=== PATIENT | male | born 1940 | race Caucasian/White ===

== ENCOUNTER 2017-01-02 12:18 | Inpatient (IN) | payer MEDICARE ==
[~2017-01-02] VITALS: Ht 193 cm; Wt 80.7 kg
[2017-01-02] VITALS (11 sets, daily range): BP systolic 102–133; BP diastolic 56–78; PULSE 64–78; RESP 16–22; O2SAT 93–97
--- NOTE | 2017-01-02 12:24 | ED.REPORT ---
HPI-Chest Pain 40 and Over Date of Service Jan 02, 2017 ED Provider: Kim Case MD The pt is a 76 y/o male presenting to the ED via EMS complaining of chest pain onset 1 hour ago. The pain is localized to the left center area of his chest and feels like something in his chest is going to blow. The pain was very sudden in onset and began while he was lifting something into his truck. The pain was a 9/10 on medic arrival, 2 SL Nitro, 2 MG morphine, and 324 mg of aspirin was given. The pt now reports the pain being a 3/10. Nursing Notes Stated Complaint: CHEST PAIN Chief Complaint: Chest Pain Nursing Notes Reviewed: Yes Allergies: Coded Allergies: No Known Allergies (Unverified , 01/02/17) General Time Seen by MD: 12:23 Chief Complaint Chest pain Hx Obtained From: Patient, EMS Arrived By: Ambulance Sudden in Onset?: Yes Onset Occurred: 1 - 4 hours ago Symptom Duration: Since onset Recent Healthcare: No recent doctor visit, No recent hospitalization Similar Sx Previous: No Past Medical History Past Medical History None reported Past Surgical History Partial coccyx removal Smoking History Unknown if Ever Smoker Social History Other Social History: Good social support, Ambulatory Status Independent Review of Systems Cardiovascular: Reports: Chest pain Complete sys rev & neg: except as marked. Physical Exam Initial Vital Signs Vital Signs (First) Date Time Temp Pulse Resp B/P Pulse Ox O2 Delivery O2 Flow Rate FiO2 01/02/17 12:24 36.7 66 20 133/70 96 Room Air Initial VS: Reviewed Head / Eyes: Atraumatic, Normocephalic, PERRL ENT: Mucous membranes moist, Conjunctiva normal, No scleral icterus Neck: Supple, Non-tender, Full range of motion Extremities: Vascular intact, Neuro intact, No swelling, No tenderness Skin: Warm, Dry, No cyanosis Neurologic: Alert, Oriented, Nonfocal Psychiatric: Mood/affect normal, Behavior normal, Normal thought content General/Constitutional: Awake, Alert Respiratory / Chest: Atraumatic, Breath sounds NL, Breath sounds = bilat Cardiovascular: Heart rate NL, Regular rhythm, Heart sounds NL Abdomen: Atraumatic, Soft, Non-tender Interpretation & Diagnostics Lab Results Interpretation Result Diagram: 01/02/17 1238 01/02/17 1238 Test 01/02/17 12:38 01/02/17 13:03 White Blood Count 5.9th/mm3 (3.8-10.1) Red Blood Count 4.89mil/mm3 (4.40-5.80) Hemoglobin 15.3g/dL (13.8-17.2) Hematocrit 43.2% (41.0-50.0) Mean Corpuscular Volume 88.3fL (81-100) Mean Corpuscular Hemoglobin 31.3pg (27.0-35.0) Mean Corpuscular Hemoglobin Concent 35.4% (32.0-37.0) Red Cell Distribution Width 13.0% (12.3-15.4) Platelet Count 193bil/L (150-400) Neutrophils (%) (Auto) 62.7% (40-74) Lymphocytes (%) (Auto) 19.5% (14-46) Monocytes (%) (Auto) 14.4% (4-12) Eosinophils (%) (Auto) 2.5% (0-5) Basophils (%) (Auto) 0.7% (0-3) Prothrombin Time 10.7sec (8.1-12.5) Prothromb Time International Ratio 1.00ratio Activated Partial Thromboplast Time 27.8sec (22.8-33.0) Sodium Level 135mEq/L (134-144) Potassium Level 4.5mEq/L (3.5-5.2) Chloride Level 101mEq/L (97-108) Carbon Dioxide Level 17mmol/L (18-29) Blood Urea Nitrogen 25mg/dL (8-27) Creatinine 0.89mg/dL (0.76-1.27) Estimat Glomerular Filtration Rate 88mL/min (>59) Glucose Level 107mg/dL (60-99) Calcium Level 8.7mg/dL (8.5-10.1) Magnesium Level 2.0mg/dL (1.6-2.6) Total Bilirubin 0.6mg/dL (0.0-1.2) Aspartate Amino Transf (AST/SGOT) 22U/L (0-50) Alanine Aminotransferase (ALT/SGPT) 19U/L (0-44) Alkaline Phosphatase 80U/L (25-160) Total Protein 6.4g/dL (6.4-8.4) Albumin 3.6g/dL (3.4-5.0) Urine Color Straw (YELLOW) Urine Appearance Clear (CLEAR,HAZY) Urine pH 6.5 (5.0-8.0) Urine Specific [place] 1.005 (1.003-1.035) Urine Protein Negativemg/dL (NEG,TRACE) Urine Glucose (UA) Negativemg/dL (NEGATIVE) Urine Ketones Negativemg/dL (NEGATIVE) Urine Occult Blood Negative (NEGATIVE) Urine Nitrite Negative (NEGATIVE) Urine Bilirubin Negative (NEGATIVE) Urine Urobilinogen Normalmg/dL (NORMAL) Urine Leukocyte Esterase Negative (NEGATIVE) Urine RBC 0-2/hpf (0-2) Urine WBC 0-5/hpf (0-5) Urine Epithelial Cells Occasional/hpf (NONE-MOD) Urine Crystals None seen (NONE SEEN) Urine Bacteria None/hpf (NONE-FEW) Urine Hyaline Casts None/lpf (NONE) Urine Granular Casts None seen (NONE SEEN) Urine Waxy Casts None seen (NONE SEEN) Urine Red Blood Cell Casts None seen (NONE SEEN) Urine White Blood Cell Casts None seen (NONE SEEN) Urine Mucus None seen (None Seen) Urine Trichomonas None seen (NONE SEEN) Urine Yeast None (NONE SEEN) Urinalysis Comment None Urine Culture Reflexed Not indicated Hold Urine Received (Received) ECG Interpretation ECG Interpretation: Rate 65 NSR Abnormal R-wave progression, early transition Inferior infarct, old No comparison Time: 12:24 Interpreted by: ED physician ECG Interpretation: Rate 63 NSR Abnormal R-wave progression, early transition Inferior infarct, old w/ increasing pain No acute changes Time: 13:08 Interpreted by: ED physician X-Ray Chest Interpretation Chest Xray Interpretation: IMPRESSION: Normal. Source of pain is not seen. Dictated by: Tk Aguilera M.D. on 01/02/2017 at 13:06 Approved by: Tk Aguilera M.D. on 01/02/2017 at 13:06 View: Portable, 1 view Interpretation / Wet Read by: Interpret - Radiologist Re-Eval/Medical Decision Med Decision/Clinical Course 6-year-old gentleman without significant medical history no prior cardiac issues. With lifting boxes and some heavy exertional activity this morning developed the acute onset about 10 out of 10 substernal chest pain with diaphoresis and shortness of breath. Improved to a 2 out of 10 pain level after 2 nitroglycerin and morphine with medics. He did receive aspirin prior to arrival. Initial EKG does not show any acute ST changes. Given another nitroglycerin in the emergency department and pain continued to state a 2 and then begin increasing again. Repeat EKG continues to show no acute changes. Initial troponin is unremarkable. Patient on nitroglycerin drip heparin drip going to CCU pain remains at a 2 out of 10 level. Cardiac consultation is obtained. Questions and concerns reviewed with patient and his stable at the time of transfer to the ICU Time of Eval: 12:47 Re-Evaluation/Progress Note: After a 3rd nitro was given the pain is still a 3/10 Time of Eval: 13:02 Re-Evaluation/Progress Note: Rechecked pt whose pain is slightly increased. Informed pt of need for admission. Pt understands and agrees with plan for admission. All questions addressed. Consultation #1: Referral / Consult Name: Luann Terrazas MD Consulted With: Cardiology Call Returned at: 13:12 Note: Dr. Terrazas will consult Consultation #2: Referral / Consult Name: Pedro Saunders MD Consulted With: Hospitalist Call Returned at: 13:56 [facility] Office Supervisor: Will see patient, Agrees with eval, Agrees with plan, Accepts admit Counseled Regarding: Diagnosis, Lab results, Need for admission Discharge & Departure Primary Impression: Chest pain Chest pain type: unspecified Qualified Code: R07.9 - Chest pain, unspecified Additional Impression: Non-STEMI (non-ST elevated myocardial infarction) Disposition: ADMITTED TO HOSPITAL Discharge Condition All VS Reviewed: Yes Condition: Stable Referrals: [facility] Crit Care Except Billable Proc Time Spent: 30-74 minutes Services Performed: Patient management by me, Time spent at bedside, Reviewing test results, Reviewing imaging, Discussing patient care, Documentation in record, Time with fam/surrogate Scribe Attestation Portions of this note were transcribed by Jose Richardson. I, Dr. Case personally performed the history, physical exam and medical decision-making; I reviewed and confirmed the accuracy of the information in the transcribed note. copies to: [facility] Kim Case MD Jan 02, 2017 12:24 Jose Richardson Jan 02, 2017 13:22
[2017-01-02 12:42] LABS: BASOPHILS % (AUTO) 0.7 % (0-3); EOSINOPHILS % (AUTO) 2.5 % (0-5); MONOCYTES % (AUTO) 14.4 % (4-12); Mean Corpuscular Hemoglobin 31.3 pg (27.0-35.0); Mean Corpuscular Volume 88.3 fL (81-100); NEUTROPHILS % (AUTO) 62.7 % (40-74); Platelet Count 193 bil/L (150-400)
[2017-01-02] MEDS ORDERED: Nitroglycerin 50 mg/250 mL D5W 50,000 MCG in IV Premix 1 EACH IV ONE (12:47)
[2017-01-02] MEDS ORDERED: Heparin 25K Unit/500mL 0.45 NS 25,000 UNIT in IV Premix 1 EACH IV ONE (12:50)
[2017-01-02] MEDS ORDERED: Heparin 5,000 Unit/mL Inj IVPUSH ONE (12:50)
[2017-01-02 13:06] LABS: TROPONIN T < 0.010 ug/L (0.0-0.011)
--- NOTE | 2017-01-02 13:08 | DRSVH ---
PROCEDURE: X-RAY CHEST ONE VIEW, PORTABLE ([id number]) INDICATIONS: CHEST PAIN TECHNIQUE: One view of the chest was acquired. COMPARISON: None. FINDINGS: Surgical changes and devices: None. Lungs and pleura: No pleural effusions or pneumothorax. Lungs are clear. Mediastinum: Mediastinal contours appear normal. Heart size is normal. Bones and chest wall: No suspicious bony lesions. Overlying soft tissues appear unremarkable. IMPRESSION: Normal. Source of pain is not seen. Dictated by: Tk Aguilera M.D. on 01/02/2017 at 13:06 Approved by: Tk Aguilera M.D. on 01/02/2017 at 13:06
[2017-01-02] MEDS ORDERED: Ondansetron 2 mg/mL 2 mL Inj IVPUSH PRN (14:05)
[2017-01-02] MEDS ORDERED: Polyethylene Glycol (PEG) 17 Gm Powder PO PRN (14:05)
[2017-01-02] MEDS ORDERED: Alum-Mag Hydrox-Simeth 30 mL Suspension PO PRN (14:05)
[2017-01-02 15:27] LABS: APPEARANCE,URINE CLEAR (CLEAR,HAZY); COLOR,URINE STRAW (YELLOW); OCCULT BLOOD,URINE NEGATIVE (NEGATIVE); PH,URINE 6.5 (5.0-8.0); UROBILINOGEN,URINE NORMAL (NORMAL)
[2017-01-02] MEDS ORDERED: Heparin 25K Unit/500mL 0.45 NS 25,000 UNIT in IV Premix 1 EACH IV SCH (15:50)
[2017-01-02] MEDS ORDERED: Heparin Protocol Boluses IVPUSH PRN (16:05)
[2017-01-02] MEDS ORDERED: Heparin 5,000 Unit/mL Inj SUBQ SCH (16:30)
[2017-01-02 16:58] LABS: Creatine Kinase 176 U/L (21-232); TROPONIN T < 0.010 ug/L (0.0-0.011)
--- NOTE | 2017-01-02 17:11 | CONS ---
[address] [address] CONSULTATION REPORT PATIENT: DEBBIE MCDANIEL : 1940 MR#: [id number] ADMIT: 01/02/2017 JOB ID: [id number] DATE OF SERVICE: 01/02/2017 REASON FOR CONSULT: Further evaluation of chest pain. CHIEF COMPLAINT: Chest pain. PRESENT HISTORY: This 76-year-old, pleasant male who has a history of intermittent GERD, as well as some dysphagia, borderline hyperlipidemia, not on any medications. Got admitted to the emergency department because of above-mentioned chief complaint. According to the patient physically he is very active. From last couple of weeks he has been loading truck with his house stuff as they are in the process of moving from one house to another house. Today, he loaded the truck. He went inside his house to have some rest. He lays down on his stomach. That is the way he usually lays down. He was watching TV and suddenly he felt profound chest pain on the left side of his chest. It was very intense. He did not have any nausea, vomiting, sweating or shortness of breath. He got worried. He called 911. Patient was given two sublingual nitroglycerin as well as 324 mg of aspirin and 2 mg of morphine. The patient was brought to the ED. The patient was started on heparin drip as well as nitroglycerin drip. His chest pain improved. He got admitted to the hospital. At present, he is lying on bed. He appears comfortable. He is not in acute distress. The patient told me about a week ago he had similar discomfort but it was not very intense. At that time also he was laying down in a prone position on his stomach. At that time, when he took deep breaths and started moving around, it got better. With exertion it did not get worse. He did not have any nausea, vomiting, sweating. In the past he has been athletic. He used to play basketball. He does lot of yard work. During exertion denies any chest pain or shortness of breath or palpitation or dizziness or syncope. No prior history of myocardial infarction or rheumatic heart disease or congenital heart disease. Denies any history of stroke. Denies any active bleeding or anemia, recent viral infection, pleuritis or pericarditis symptoms. No history of connective tissue disorders. No family history of coronary artery disease. PAST MEDICAL HISTORY: History of intermittent GERD symptoms as well as dysphagia and borderline hyperlipidemia. PAST SURGICAL HISTORY: Ankle surgery. ALLERGIES: Denies any allergy. MEDICATIONS: He does not take medications regularly. SOCIAL HISTORY: Denies any tobacco abuse, alcohol abuse, or drug abuse. FAMILY HISTORY: Noncontributory. REVIEW OF SYSTEMS: Ten-point review of systems were obtained and negative except as stated above. PHYSICAL EXAMINATION: Blood pressure 110/56, heart rate 64, respiratory rate 20, oxygen saturation 95%. HEENT: No significant anemia, jaundice. Neck: No apparent JVP or carotid bruit. Chest: No obvious crepitation or rhonchi. CVS: S1, S2 normal. No S3, no S4. No significant murmur. Abdomen: No obvious pulsatile mass. No obvious hepatosplenomegaly. Extremities: No significant pedal edema other than trace bilateral pedal edema with some erythematous changes. Vascular: No evidence of critical limb ischemia. SUPERVISOR MARBLE: Alert, oriented to time, place, and person. No obvious motor or sensory deficit. LABORATORIES: WBC 5.9, hemoglobin 15.3, platelets 193, polymorphs 62.7. Sodium 135, potassium 4.5, BUN 25, creatinine 0.89. magnesium 2.0. Normal AST, ALT. Total CPK 203. Troponin T less than 0.010. INR 1.0. EKG today at about 12:24 p.m. revealed sinus rhythm without any significant ST-T changes. There appears to be left axis. 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 However, one cannot rule out possibility of old inferior wall LA. QTc 390 msec. CO interval 167 msec. X-ray chest: No obvious cardiomegaly. Lungs clear. No acute pathology. ASSESSMENT/PLAN: 1. Acute onset chest pain which happened during the rest when he was laying down on prone position without any exertional component. On surface EKG, no significant ST elevation or depression. However, there is possibility of incomplete left anterior fascicular block versus old inferior wall LA. Clinically, the patient appears compensated. He is not in heart failure. I do not appreciate any pericardial rub. WBC is not elevated. First set of CPK troponin normal. The patient has history of intermittent GERD as well as dysphagia and borderline hyperlipidemia. His CAD risk factors include age, sex, as well as history of borderline hyperlipidemia. 2. At this point of time from cardiac perspective we will recommend serial CPK troponin. Will also get 2D echo to make sure there is no regional wall motion abnormality or structural heart disease. If echo turns out to be normal with normal serial CPK, troponin, then we will recommend exercise stress test for CAD diagnosis and risk stratification. If the stress test turns out to be normal. We will recommend GI workup to rule out GI etiology of chest pain especially in view of intermittent GERD and dysphagia symptoms. If troponin turns out to be abnormal or significant wall motion abnormalities on echocardiogram, then will recommend invasive workup including left heart catheterization. Discussed the plan with the patient. He agrees and concurs. Benefits and risks of left heart catheterization discussed with the patient as well. Meanwhile, we will recommend treating him as per unstable angina protocol. Thanks for the Cardiology consult. Total time spent today about at least 70 minutes.
--- NOTE | 2017-01-02 18:09 | NUR ---
Admit note Patient admitted to 2029 from [facility] ER via bed. Patient a/o x 3, c/o left side chest pain 2/10, Nitro gtt @ 20 mcg/min and Heparin gtt infusing apon arrival to floor. Patient denies headache from Nitro gtt. VSS, tele SR. Patient oriented to call light, tv, bathroom, phone and poc. Echo done this afternoon. Family at bedside throughout the shift.
--- NOTE | 2017-01-02 18:16 | DRSVH ---
[facility] [address] [place] [place] [address] Echocardiogram Report Name: DEBBIE MCDANIEL JStudy Date : 01/02/2017 Height: 75 in Hospital Exam Location: [facility] Weight: 197 lb Gender: Male BSA: 2.2 m2 : 1940 Age: 76 yrs BP: 119/65 mmHg Reason For Study: Chest pain Ordering Physician: Performed By: Jane JUAREZIST [facility] Interpretation Summary The left ventricle is normal in size. The ejection fraction is estimated to be 60-65%. The right ventricle is normal in size and function. There is mild to moderate mitral regurgitation. There is mild aortic regurgitation. The aortic root is mildly dilated. The ascending aorta is mild-moderately enlarged. Procedure: A two-dimensional transthoracic echocardiogram with color flow and Doppler was performed. Image quality was fair. Technically difficult to obtain the images. There is no prior echocardiogram noted for this patient. The patient was in normal sinus rhythm during the exam. Left Ventricle: The left ventricle is normal in size. Proximal septal thickening is noted. There is no echo evidence for significant left ventricular outflow tract obstruction. There is no thrombus. The ejection fraction is estimated to be 60-65%. There are no focal wall motion abnormalities. Assessment of diastolic parameters indicates normal left ventricular diastolic function and normal filling pressures. Right Ventricle: The right ventricle is normal in size and function. Atria: Both atria are normal in size. There is no Doppler evidence for an interatrial shunt. Mitral Valve: The mitral valve leaflets are slightly calcified. There is mild to moderate mitral regurgitation. Aortic Valve: The aortic valve is trileaflet. The aortic valve opens well. There is no aortic valve stenosis. There is mild aortic regurgitation. Tricuspid Valve: The tricuspid valve leaflets are thin and pliable. There is trace tricuspid regurgitation. The right ventricular systolic pressure is estimated at 22 mmHg assuming a right atrial pressure of 3 mm Hg. Pulmonic Valve: The pulmonic valve is not well visualized. There is mild pulmonic regurgitation. Great Vessels: The aortic root is mildly dilated. The ascending aorta is mild-moderately enlarged. The IVC is of normal diameter and collapses greater than 50% with a sniff. This suggests a low right atrial pressure of 3 mm Hg. Pericardium/ Pleura There is no pericardial effusion. MMode/2D Measurements & Calculations LVIDd: 4.7 cm RA long axis LVOT diam: 2.2 cm LVIDs: 2.6 cm LA A2 area: 18.2 cm Ao root diam FS: 43.1 % LA A4 area: 18.1 cm RA area EPSS: 0.21 cm LA length (vol) Aortic Jxn: 3.3 cm IVSd: 0.73 cm : 14.7 cm asc Aorta Diam LVPWd: 0.79 cm LA vol: 53.3 ml RA vol LA vol index : 32.4 ml Ao Arch Diam (Prox RA Trans): 3.1 cm : 14.8 mm2 IVC diam: 1.3 cm LV dykes. diameter/BSA LV sys. diameter/BSA RVD1 (basal) (cm/m^2): 2.1 (cm/m^2): 1.2 Doppler Measurements & Calculations Ao V2 max MV E max ricardo MV E/A: 1.2 TR max ricardo : 124.6 cm/sec : 67.2 cm/sec Med Peak E' Ricardo : 215.8 cm/sec Ao max P.2 mmHgMV A max ricardo TR max PG Ao mean PG : 55.0 cm/sec E/E' med: 9.1 : 18.6 mmHg MV P1/2t: 51.2 msec Lat Peak E' Ricardo PA V2 max LVOT Max Ricardo : 77.3 cm/sec : 104.5 cm/sec E/E' lat: 8.7 PA mean PG E/e' average: 8.9 ZANE(I,D): 3.6 cm PA Accel Time sev ratio: 0.93 : 0.09 sec AI P1/2t : 627.6 msec AI dec slope : 185.2 cm/s2c MV dec time MV P1/2t max ricardo Ao V2 mean LV V1 max PG : 0.18 sec : 83.0 cm/sec MVA(P1/2t): 4.3 cm2 Ao V2 VTI: 23.0 cmLV V1 VTI ZANE(V,D): 3.3 cm2 : 21.3 cm PA V2 mean ZANE indexed to BSA : 59.4 cm/sec (cm^2/m^2): 1.7 Reading Physician:RICARDO
[2017-01-02] MEDS ORDERED: tumeric (18:21)
[2017-01-02] MEDS ORDERED: vit D (18:21)
[2017-01-02] MEDS ORDERED: vit E (18:21)
--- NOTE | 2017-01-02 21:11 | PCM.HPMED ---
Subjective Date of Service Jan 02, 2017 Primary Provider: Admitting Physician: Pedro Saunders MD Primary Care Physician: Nopjacqueline Attending Physician: Pedro Saunders MD Admit Status: 23-Hour Observation Chief Complaint: Chest pain History of Present Illness: Mr. Abdi is a typically healthy 76 y/o male with a history of intermittent GERD , minimal dysphagia, borderline hyperlipidemia, and not on any medications who presented to the ED via EMS complaining of chest pain onset 1 hour prior to arrival. The pain is localized to the left center area of his chest and and he describes a sharp stabbing 9/10 pain which does not radiate. Pain is made better by deep breathing, and is not reproducible to palpation, and is not made worse with exertion. At the time of onset patient had recently finished loading his truck, and tying down the contents. He states he was laying down resting watching TV for a few minutes and as he stood up the pain in his chest began. He did not experience any nausea, vomiting, sweating. EMS was called, patient was given 2 SL Nitro, 2 MG morphine, and 324 mg of aspirin. Post therapy the patient reported 3/10 chest pain. He states that the nitroglycerin seemed to help his pain, however its effect seemed to be slow acting. Patient also reports that the last 2 weeks he has experienced episodes of shortness of breath and there frequency seems to be increasing. Typically the patient is very active. In the emergency department chest x-ray was negative for pathology. EKG showed Abnormal R-wave progression, early transition, and possible old inferior infarct. Serial troponins of this far been negative. Echo shows ejection fraction of 60-65% , mild to moderate mitral regurg, mild aortic regurg. All other parameters within normal limits. Review of Systems: Patient complains of chest pain. Patient denies shortness of breath, nausea, vomiting, abdominal pain him a headache, diarrhea, constipation, increased swelling of arms or legs Allergies Uncoded Allergies: tri sulfs (Adverse Reaction, Intermediate, 01/02/17) dizzy "felt weird" Home Medications Patient does not take medications at home. PMH Borderline cholesterol GERD Surgical History Partial coccyx removal Family History No significant family history of coronary disease that he is aware of. Social History Hx Alcohol Use: No Hx Substance Use: No Hx Tobacco Use: No Smoking Status: Never Smoker Living Arrangement: with Family Exam Vital Signs Vital Sign - Last Date Time Temp Pulse Resp B/P Pulse Ox O2 Delivery O2 Flow Rate FiO2 01/02/17 17:55 73 16 127/69 96 Room Air 01/02/17 14:55 36.6 Exam General: No acute distress, well-developed, well-nourished HEENT: Normocephalic, atraumatic. External ears without defect. Pupils equal, round, and reactive to light and accommodation. Anicteric sclerae, moist conjunctivae. Cardiovascular: Regular rate and rhythm with no murmurs, rubs, or gallops appreciated Pulmonary: Clear to auscultation bilaterally with no crackles, wheezes, or rhonchi. Normal respiratory effort with no use of accessory muscles. Abdomen: Bowel tones present. Soft, nontender, nondistended. Extremities: No clubbing, cyanosis, edema Skin: Normal temperature, turgor, and texture; no rash, ulcers, or subcutaneous nodules appreciated. Neurological: Cranial nerves grossly intact. Reflexes, coordination, and sensory function within normal limits. Normal muscle strength, tone, and bulk. Psychiatric: Normal mood and affect. Alert and oriented to person, place, and time Lab and Diagnostics Result Diagram: 01/02/17 1238 01/02/17 1238 X-Rays, CTs and MRIs X-RAY CHEST ONE VIEW, PORTABLE IMPRESSION: Normal. Source of pain is not seen. Dictated by: Tk Aguilera M.D. on 01/02/2017 at 13:06 Approved by: Tk Aguilera M.D. on 01/02/2017 at 13:06 Cardiac Echo Impressions Echocardiogram The left ventricle is normal in size. The ejection fraction is estimated to be 60-65%. The right ventricle is normal in size and function. There is mild to moderate mitral regurgitation. There is mild aortic regurgitation. The aortic root is mildly dilated. The ascending aorta is mild-moderately enlarged. Assessment & Plan Mr. Abdi is a typically healthy 76 y/o male with a history of intermittent GERD , minimal dysphagia, borderline hyperlipidemia, and not on any medications who presented to the ED via EMS complaining of chest pain onset 1 hour prior to arrival. Unstable angina, present on arrival, active Patient currently on a nitro and heparin drip, cardiology consulted and following. No previous episodes. Cardiac source of the patient's pain is unlikely but cannot be ruled out. - Continue trending troponins - EKG findings not suggestive of cardiomyopathy - Initially Negative troponins, continue to trend - Creatinine kinase, CK-MB, CK-MB percent negative - C-reactive protein, mildly elevated at 1.1 - Relatively normal findings on echo ejection fraction 60-65% see above - Patient scheduled for stress test tomorrow morning - TSH, lipid panels pending Hyperlipidemia - Per patient most recent lipid panel performed a number of years ago, he thinks that his numbers were borderline at this time. - Repeat lipid panel ordered for the morning Disposition: Patient admitted under inpatient status with expected length of stay > 2 midnights for severity of present symptoms, complexities of treatment plan and risk for adverse event Pain Evaluation: Adequate Pain Control GI Prophylaxis: H2 luis armando VTE Prophylaxis: Other (heparin drip) Resuscitation Status: CPR: Attempt Resuscitation Attending Statement The patient was seen and examined together with Dr. Gilmore on 01/02/2017 and I agree with the history, exam and plan as outlined in the note above. . Carson Gilmore DO Jan 02, 2017 21:10 Pedro Saunders MD Jan 03, 2017 16:01
[2017-01-03] VITALS (7 sets, daily range): BP systolic 103–126; BP diastolic 59–70; PULSE 70–82; RESP 14–18; O2SAT 95–96
[2017-01-03 03:06] LABS: TROPONIN T 0.01 ug/L (0.0-0.011)
--- NOTE | 2017-01-03 06:04 | NUR ---
Chest Pain At HS, patient reported chest pain had been 1-2/10 throughout the day, had gradually increased to 3-4/10 in the evening, and during the time of assessment and vitals, began increasing to 6-7/10 pain. Pt reported symptoms as aching, burning, and pressure, stating "It feels like my chest just wants to explode, like there's a pipe in there that's going to burst. And it's worse when I take a deep breath or move or drink cold water." Charge nurse titrated nitro gtt to 40mcg/min; MD paged to update on chest pain and nitro gtt dose; orders received for 2mg IVP morphine for pain relief. Pt reports morphine effective for pain upon reassessment but did not affect chest pressure. Pt able to rest intermittently, though anxious when awake about diagnosis and plan of care. This AM, due to stress test plan for daytime, MD paged about nitro gtt being stopped in preparation for stress test; orders received to titrate nitro gtt down 10mcg every hour until off, unless patient reports return of or worsening of pain, in which case to restart nitro gtt and notify MD. At approx. 0400, pt reported pain at 3/10 and described symptoms as "dull" and "numb"; by 0545 when nitro gtt stopped, patient reported pain had gradually been increasing and now rates at 7/10. MD notified, nitro gtt restarted at 20mcg/min and titrated to 30mcg/min. VSS throughout shift, with decrease in SBP to 80s-90s when nitro gtt dose at 40mcg/min. Current SBP 100s. NPO after midnight.
--- NOTE | 2017-01-03 13:05 | NUR ---
BRANDT explained and signed. Copy of BRANDT given to pt
--- NOTE | 2017-01-03 13:35 | NUR ---
MIBI Patient npo since midnight, no caffeine since prior to admit. Nitro gtt stopped at 0700. Heparin gtt stopped at [address] Terrazas's orders. Patient down to stress test at 1130 and returned to room at 1300.
--- NOTE | 2017-01-03 14:18 | DRSVH ---
PROCEDURE: EITHER REST OR STRESS ONLY. Exercise myocardial perfusion SPECT with gated imaging and ej ection fraction RADIOPHARMACEUTICAL: 20.4 mCi of Tc-99m tetrofosmin IV at peak exercise. INDICATIONS: UNSTABLE ANGINA. TECHNIQUE: Radiopharmaceutical was injected at peak stress test. SPECT images were obtained, with p erfusion images in short axis, horizontal long axis, and vertical long axis views. Gated images were reviewed using [employer] software. COMPARISON: None. CARDIAC STRESS: A standard Lam treadmill exercise tolerance test was performed by the patient unde r the supervision of an attending staff. The patient exercised for 6 minutes and 46 seconds; functio nal aerobic impairment (ANGELINE) is -30%. Hemodynamic Data: There is normal blood pressure and heart rate response to exercise. The patient a chieved 92% of maximum predicted heart rate. Symptoms: The patient denied anginal chest pain during exercise, however, felt fatigue. EKG: No diagnostic changes of ischemia or ectopy, however, baseline rhythm was sinus and there is ab out 1 mm of MD segment depression in the anterior inferior leads and MD segment elevation about 1 mm in aVR as well as diffuse concave ST elevation at rest. FINDINGS: Raw Data: There appears to be adequate myocardial uptake. There was increased subdiaphragmatic acti vity. Left Ventricular Function: Stress LV ejection fraction was 83%. I do not see any obvious wall motio n abnormalities. End diastolic volume was 55 mL. Myocardial Perfusion: Stress supine images reveal moderate-size, mildly-decreased perfusion of the b ase to mid inferior wall, extending into the basal inferolateral as well as basal inferoseptum, which significantly improved during prone images, suggestive of diaphragmatic attenuation artifact. Durin g prone images, I do not see any significant perfusion defects. IMPRESSION: I will call this study likely a normal myocardial perfusion study with evidence of diaph ragmatic tissue attenuation artifact, which significantly improved during prone images. The patient has good exercise tolerance. Functional aerobic impairment is -30%. The patient did not have any ch est pain, however, on surface electrocardiogram, the patient appears to have 1 mm of diffuse MD segme nt depression and, in aVR, 1 mm MD segment elevation and concave ST elevation diffusely. Those juarez es were not seen on surface electrocardiogram yesterday. There may be a possibility of evolving cierra carditis feature. Discussed the findings with the hospitalist team. Will recommend repeat electroca rdiogram as well as checking ESR, CRP. As far as the perfusion scan is concerned, this is a low-risk myocardial perfusion scan. Dictated by: Luann Terrazas M.D. on 01/03/2017 at 13:28 Transcribed by: MISTY on 01/03/2017 at 17:18 Approved by: Luann Terrazas M.D. on 01/04/2017 at 17:24
--- NOTE | 2017-01-03 15:11 | PCM.PNMED ---
Subjective Date of Service Jan 03, 2017 Subjective Mr. Abdi is a typically healthy 76 y/o male with a history of intermittent GERD , minimal dysphagia, borderline hyperlipidemia, and not on any medications who presented to the ED via EMS complaining of chest pain onset 1 hour prior to arrival. Hospital Day 1. Nursing reports no acute events overnight. NPO after midnight. Patient seen and examined. C/o mild substernal chest pain. Denies SOB, N/V/D, ABD pain, headache, or diaphoresis. Exam Vital Signs Vital Sign - Last Date Time Temp Pulse Resp B/P Pulse Ox O2 Delivery O2 Flow Rate FiO2 01/03/17 10:50 72 01/03/17 08:05 Supplement Oxygen 01/03/17 07:26 36.2 16 103/61 96 6.00 Intake and Output 01/02/17 01/02/17 01/03/17 Cumulative From/Thru 15:00 23:00 07:00 01/02/17 12:27 - 01/03/17 06:25 Intake Total 678 ml 678 ml Output Total 350 ml 650 ml 1000 ml Balance -350 ml 28 ml -322 ml Intake Oral 200 ml 200 ml IV Total 478 ml 478 ml Output Urine Total 350 ml 650 ml 1000 ml Exam Constitutional: awake, alert and oriented x4. In no acute distress Head: normocephalic and atraumatic Eyes: Pupils equal round and reactive to light. EOMI. Heart: regular rate and rhythm. No peripheral edema. Lungs: Clear to auscultation. No wheeze, rales, or rhonchi. ABD: soft, nontender, bowel sounds present throughout. Musculoskeletal: moves all four extremities appropriately. Neuro: CN II-XII, no focal deficits. Psych: Appropriate mood and affect. IVs and Medications Medications Reviewed: Medications were reviewed in detail Lab and Diagnostics Item Value Date Time Erythrocyte Sedimentation Rate 11 mm/hr 01/03/17 0225 Red Blood Count 4.89 mil/mm3 01/02/17 1238 Mean Corpuscular Volume 88.3 fL 01/02/17 1238 Mean Corpuscular Hemoglobin 31.3 pg 01/02/17 1238 Mean Corpuscular Hemoglobin Concent 35.4 % 01/02/17 1238 Red Cell Distribution Width 13.0 % 01/02/17 1238 Neutrophils (%) (Auto) 62.7 % 01/02/17 1238 Lymphocytes (%) (Auto) 19.5 % 01/02/17 1238 Monocytes (%) (Auto) 14.4 % H 01/02/17 1238 Eosinophils (%) (Auto) 2.5 % 01/02/17 1238 Basophils (%) (Auto) 0.7 % 01/02/17 1238 Estimat Glomerular Filtration Rate 88 mL/min 01/02/17 1238 Calcium Level 8.7 mg/dL 01/02/17 1238 Magnesium Level 2.0 mg/dL 01/02/17 1238 Total Bilirubin 0.6 mg/dL 01/02/17 1238 Aspartate Amino Transf (AST/SGOT) 22 U/L 01/02/17 1238 Alanine Aminotransferase (ALT/SGPT) 19 U/L 01/02/17 1238 Alkaline Phosphatase 80 U/L 01/02/17 1238 Troponin T < 0.010 ug/L 01/02/17 1238 Total Protein 6.4 g/dL 01/02/17 1238 Albumin 3.6 g/dL 01/02/17 1238 Total Creatine Kinase 203 U/L 01/02/17 1238 Creatine Kinase MB 7.2 ng/mL 01/02/17 1238 Creatine Kinase MB % 3.5 % 01/02/17 1238 Total Creatine Kinase 176 U/L 01/02/17 1615 Creatine Kinase MB 6.3 ng/mL 01/02/17 1615 Creatine Kinase MB % 3.6 % 01/02/17 1615 Troponin T < 0.010 ug/L 01/02/17 1615 C-Reactive Protein 1.1 mg/dL H 01/02/17 1615 Troponin T < 0.010 ug/L 01/02/17 2000 Troponin T 0.010 ug/L 01/03/17 0225 Total Creatine Kinase 106 U/L 01/03/17 0225 C-Reactive Protein 4.0 mg/dL H 01/03/17 0225 Triglycerides Level 62 mg/dL 01/03/17 0225 Cholesterol Level 184 mg/dL 01/03/17 0225 LDL Cholesterol, Calculated 118.600 mg/dL H 01/03/17 0225 VLDL Cholesterol 12.400 mg/dL 01/03/17 0225 HDL Cholesterol 53 mg/dL 01/03/17 0225 Cholesterol/HDL Ratio 3.47 01/03/17 022 Thyroid Stimulating Hormone (TSH) 1.320 uIU/mL 01/03/17 022 Free Thyroxine 1.03 ng/dL 01/03/17 022 Activated Partial Thromboplast Time 52.0 sec H 01/03/17 0801 Activated Partial Thromboplast Time 54.1 sec H 01/03/17 0225 Result Diagram: 01/02/17 1238 01/02/17 1238 X-Rays, CTs and MRIs X-RAY CHEST ONE VIEW, PORTABLE IMPRESSION: Normal. Source of pain is not seen. Dictated by: Tk Aguilera M.D. on 01/02/2017 at 13:06 Approved by: Tk Aguilera M.D. on 01/02/2017 at 13:06 PROCEDURE: EITHER REST OR STRESS ONLY. Exercise myocardial perfusion SPECT with gated imaging and ejection fraction IMPRESSION: I will call this study likely a normal myocardial perfusion study with evidence of diaphragmatic tissue attenuation artifact, which significantly improved during prone images. The patient has good exercise tolerance. Functional aerobic impairment is -30%. The patient did not have any chest pain , however, on surface electrocardiogram, the patient appears to have 1 mm of diffuse [place] segment depression and, in aVR, 1 mm [place] segment elevation and concave ST elevation diffusely. Those changes were not seen on surface electrocardiogram yesterday. There may be a possibility of evolving pericarditis feature. Discussed the findings with the hospitalist team. Will recommend repeat electrocardiogram as well as checking ESR, CRP. As far as the perfusion scan is concerned, this is a low-risk myocardial perfusion scan. Dictated by: Luann Terrazas M.D. on 01/03/2017 at 13:28 Cardiac Echo Impressions Echocardiogram The left ventricle is normal in size. The ejection fraction is estimated to be 60-65%. The right ventricle is normal in size and function. There is mild to moderate mitral regurgitation. There is mild aortic regurgitation. The aortic root is mildly dilated. The ascending aorta is mild-moderately enlarged. Assessment & Plan Mr. Abdi is a typically healthy 76 y/o male with a history of intermittent GERD , minimal dysphagia, borderline hyperlipidemia, and not on any medications who presented to the ED via EMS complaining of chest pain onset 1 hour prior to arrival. Hospital day 1. Unstable angina, present on arrival, active vs Pericarditis Stress test r/o cardiac cause. Cardiology considering pericarditis given stress test findings and repeat EKG, and labwork as above. - EKG findings not suggestive of cardiomyopathy - Creatinine kinase, CK-MB, CK-MB percent negative - C-reactive protein, mildly elevated at 1.1 - Relatively normal findings on echo ejection fraction 60-65% see above - Patient scheduled for stress test tomorrow morning - Elvated ESR indicating a pericarditis picture. Will repeat in AM. - .6 Colchicine PO started -GI consulted Will prep for endoscopy scheduled for 01/04 to ensure patient has no current ulcers or risk for ulcers before starting penitentiary NSAID treatment for pericarditis. - NPO after midnight. Hyperlipidemia - Per patient most recent lipid panel performed a number of years ago, he thinks that his numbers were borderline at this time. - Repeat lipid panel ordered for the morning Disposition: Patient is currently being worked up for pericarditis with a scheduled endoscopy for tomorrow morning to ensure safe treatment with NSAIDS. Given the results of the study, patient will likely be discharged home tomorrow (01/03) or the next day. GI Prophylaxis: H2 luis armando VTE Prophylaxis: Other (heparin drip) Resuscitation Status: CPR: Attempt Resuscitation Attending Statement The patient was seen and examined together with Dr. Vázquez on 01/03/2017 and I agree with the history, exam and plan as outlined in the note above. . Remi Vázquez DO Jan 03, 2017 15:11 Pedro Saunders MD Jan 04, 2017 16:44
--- NOTE | 2017-01-03 16:17 | PROG NOTE ---
[address] [address] PROGRESS NOTE PATIENT: DEBBIE MCDANIEL : 1940 MR#: [id number] ADMIT: 01/02/2017 JOB ID: [id number] DATE: 01/03/2017 SUBJECTIVE: The patient denies any chest pain at present, however this morning he had some chest pain which was getting worse with deep breathing. Now he claims when he tries to eat or swallow then it hurts. This morning he had exercise perfusion study and during exercise stress test he did not have any chest pain. On perfusion scan there was diaphragmatic tissue attenuation artifact. No convincing ischemia or infarction. However, on surface EKG the patient has diffuse concave ST elevation and 1 mm NM segment depression with possibility of pericarditis. In the hospital he has ruled out for acute myocardial infarction. Echocardiogram yesterday revealed normal left ventricle and right ventricle function with LV ejection fraction 60% to 65%, mild to moderate MR, mild AR, mildly to moderately dilated ascending aorta without any pericardial effusion. The patient denies any fever, chills, cough, or recent viral syndrome. No obvious renal abnormality. Yesterday his ESR was 11 with normal range of 0-30. C-reactive protein yesterday was 1.1 and today 4.0. OBJECTIVE: Blood pressure 103/61, heart rate 71, respiratory rate 16, oxygen saturation 96%. No obvious anemia. Neck: No apparent JVD. Chest: No crepitation or rhonchi. CVS: S1 and S2 normal. No S3, no S4. I do not appreciate any significant rub. Abdomen: No new findings. Extremities: No pedal edema. PLATE FORMER: Alert. Oriented to time, place, and person. Vascular: No evidence of critical limb ischemia. LABORATORY: Triglycerides 62, total cholesterol 184, LDL 118, and HDL 53. Yesterday sodium 135, potassium 4.5, BUN 25, creatinine 0.89, with normal AST, ALT, and magnesium. TSH 1.32. Repeat EKG today after stress test revealed new J-point elevation and concave ST elevation in anterior lateral leads. I do not see any significant new NM segment elevation or depression which was seen during stress resting EKG. ASSESSMENT/PLAN: Prolonged chest pain. The patient ruled out for acute myocardial infarction. However there is new concave ST elevation and fluctuating NM segment depression. I will keep differential diagnosis acute pericarditis, however on 2D echo there was no pericardial effusion. His ESR is normal, which surprises me, however C-reactive protein increased from 1.1 to 4.0. WBC count 5.9. No acute renal failure. No history of malignancy. TSH is normal. No uremia. The patient also has a history of intermittent dysphagia and a history of GERD. His chest pain is getting aggravated with swallowing. I will recommend repeating ESR tomorrow and treating him for possible pericarditis; however, until GI workup is done, I will not put him on high doses of nonsteroidal anti-inflammatory medication which can cause gastritis, stomach ulcer, etc. I will give him a trial of colchicine 0.6 mg daily and will recommend GI workup. If GI workup does not show anything significant, and the patient continues to be symptomatic with pericarditis and pleuritis type of chest pain, then consider trial of high doses of nonsteroidal anti-inflammatory medications like ibuprofen 800 mg three times a day under the cover of proton pump inhibitor. Discussed the plan with the patient and his family, as well as our hospitalist team. They agreed and concur. TIME: Total time spent today about 40 minutes.
[2017-01-03] MEDS: Pantoprazole 40 mg ER24 Tablet PO SCH (17:03)
--- NOTE | 2017-01-03 18:10 | NUR ---
Activity/POC Patient up indep in room, denies chest pain or sob this afternoon. Taking diet well. VSS tele SR 70's. Patient updated on poc by MD. Gee after midnight for EGD in a.m. Patient given info on EGD and Endocarditis R/O.
--- NOTE | 2017-01-03 19:15 | NUR ---
[facility] signed
[2017-01-04] VITALS (10 sets, daily range): BP systolic 109–154; BP diastolic 67–81; PULSE 69–91; RESP 16–18; O2SAT 93–96
[2017-01-04 03:29] LABS: BASOPHILS % (AUTO) 0.4 % (0-3); EOSINOPHILS % (AUTO) 1.8 % (0-5); MONOCYTES % (AUTO) 15.5 % (4-12); Mean Corpuscular Hemoglobin 30.6 pg (27.0-35.0); Mean Corpuscular Volume 90.5 fL (81-100); NEUTROPHILS % (AUTO) 67.8 % (40-74); Platelet Count 185 bil/L (150-400)
--- NOTE | 2017-01-04 05:32 | NUR ---
Pain Pt denied pain all throughout shift, able to rest between interventions. Stated "This whole thing is just so strange, because we got all worked up and then it was Maalox that just, took it all away for me. The instant I took it, it was complete relief. Even the morphine didn't come close." NPO after midnight for planned EGD; patient aware of care plan. VSS, tele SR 70s.
[2017-01-04] MEDS ORDERED: fentaNYL-PF 50 mCg/mL 2 mL Inj ONE (09:11)
[2017-01-04] MEDS ORDERED: 0.9% Sodium Chloride 1,000 ML IV SCH (09:12)
[2017-01-04] MEDS ORDERED: fentaNYL-PF 50 mCg/mL 2 mL Inj IVPUSH PRN ×2 (09:15)
--- NOTE | 2017-01-04 09:20 | NUR ---
Endo Patient a/o x 4, denies chest pain, nausea or sob. Npo since midnight. Down to Endo at 0920.
[2017-01-04] MEDS: Pantoprazole 40 mg ER24 Tablet PO SCH (11:13)
--- NOTE | 2017-01-04 11:14 | CONS ---
[address] [address] CONSULTATION REPORT PATIENT: DEBBIE MCDANIEL : 1940 MR#: [id number] ADMIT: 01/02/2017 JOB ID: [id number] DATE OF SERVICE: 01/04/2017 REQUESTING PROVIDER: Remi Vázquez REASON FOR CONSULTATION: EGD request. HISTORY OF PRESENT ILLNESS: This is a 76-year-old male admitted on January 02 for symptoms of chest pain. This came on slightly left of center. It was quite severe. It was described initially as stabbing up to a 9/10, but without any other radiation. The patient does not recall whether it was worse with a breath. He was doing some rather intense labor when it all started. It did not really improve significantly with rest while lying down on his abdomen. He was taken to the emergency department and ultimately admitted for his symptoms. Troponins were negative. He denied any abdominal pain specifically has not had any nausea or vomiting. He was given some Maalox and overall he is much improved today. He has also been commenced on PPI. EGD was requested. In order to exclude an ulcer in case he needed therapy for possible acute pericarditis. REVIEW OF SYSTEMS: No fevers or chills. Body weight is overall stable. He has rare symptoms of reflux and does not take any regular medications for such. Occasionally he will have some dysphagia to some of his pills, but otherwise no trouble swallowing. He has had a colonoscopy, but perhaps greater than 10 years ago. He does not recall any findings at that time. As mentioned above, he is considerably better today and has been commenced on PPI here in the hospital. He does take NSAIDs intermittently for aches and pains related to osteoarthritic type symptoms. PAST MEDICAL HISTORY: Fairly unremarkable. MEDICATIONS: Occasional aspirin p.r.n. ALLERGIES: No known drug allergies. PAST SURGICAL HISTORY: He has had his coccyx operated. FAMILY HISTORY: His mom had some challenges with swallowing, but further details are unknown. SOCIAL HISTORY: The patient is . Lives in [place]. No habits. He has kids and grandchildren. PHYSICAL EXAMINATION: Blood pressures have been fairly unremarkable. He has been afebrile. Breathing comfortably. Pulse ranging in the 60s to 90s here in the hospital. Saturations in the high 90s. The patient was alert, oriented, appropriate, cooperative, conversational, in no distress. Sclerae anicteric. Mucous membranes moist. Mallampati two. Lungs clear bilaterally. Good respiratory effort. Heart regular. No significant peripheral edema. 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 Abdomen was soft, nondistended. Bowel sounds present. No appreciable tenderness throughout. LABS: Troponins as above. His C. reactive protein was elevated at 4.0. Sed rate was 11. Hemoglobin 15.1, hematocrit 44.6, white count 6.8, platelets 185. INR 1.0. Liver tests normal on admission. This morning bilirubin was 1.6, creatinine 0.87, BUN 21, sodium 138, potassium 4.3, chloride 102, bicarb 21, calcium 8.5 albumin 3.4, protein 6.5. CK was 106. Triglycerides 62. Urinalysis is unremarkable. IMAGING: Chest x-ray unremarkable. Echo as above. Stress test by way of Nuclear Medicine was overall considered normal with some subtle atypical features as described in the impression by Dr. Terrazas. ASSESSMENT AND RECOMMENDATIONS: This is a 76-year-old male with atypical chest pain. The etiology is unclear. He has not demonstrated any elevation in troponins nor ST-segment elevation. Echo revealed the presence of a mild to moderately enlarged ascending aorta. The aortic root was thought to be mildly dilated. He has had some very subtle gastrointestinal symptoms. Esophagogastroduodenoscopy is requested to exclude any element of peptic ulcer disease or other pathology that might contraindicate him for intensive nonsteroidal antiinflammatory drug therapy. Today he is feeling much better. Esophagogastroduodenoscopy is discussed. The risks of the procedure including bleeding, perforation, need for emergency surgery, hemodynamic instability, reaction to sedation were reviewed. He wished to proceed. In the absence of nausea, vomiting, abdominal pain. Peptic ulcer disease is thought to be quite likely. Gallbladder source for symptoms is also within the differential here, but thought to be unlikely. The patient wishes to proceed. Please see the EGD note for further details.
--- NOTE | 2017-01-04 11:19 | ENDO ---
[address] [address] ENDOSCOPY PROCEDURE PATIENT: DEBBIE MCDANIEL : 1940 MR#: [id number] ADMIT: 01/02/2017 JOB ID: [id number] DATE OF SERVICE: 01/04/2017 PROCEDURE: Esophagogastroduodenoscopy with biopsies. INDICATIONS: A 76-year-old male with atypical chest pain of uncertain etiology. EQUIPMENT: [id number] SEDATION: 1. Versed 2.5 mg. 2. Fentanyl 50 mcg. 3. Lidocaine swish and swallow. COMPLICATIONS: None identified. PROCEDURE INFORMATION: After the risks and benefits were explained, written and verbal informed consent was obtained. The patient was brought into the endoscopy suite and placed into the left lateral decubitus position. Sedation was achieved as above. The scope introduced into the mouth through the bite block, and advanced to the second portion of the duodenum. The scope was slowly withdrawn to carefully examine the mucosa for any defects or lesions. Retroflexed views were accomplished in the stomach. The stomach was decompressed. The scope removed from the patient who tolerated the procedure well. FINDINGS: 1. Duodenum: No pathology identified from the bulb through to the second portion. 2. Stomach: The patient had no ulcers, no outlet obstruction, no mass lesion. Mild diffuse gastropathy was appreciated throughout. A random biopsy was taken for Helicobacter to be excluded by way of PyloriTek assay. These results should be available in the next 30-60 minutes. Otherwise, retroflexed views of the LES were unremarkable. There was a small umbilicated lesion in the mid to proximal body of the stomach. This appeared somewhat suggestive of an underlying pancreatic rest, but was thought to be perhaps a little further north in the stomach than we typically see, but we biopsied this lesion for histopathology. 3. Esophagus: The squamocolumnar junction correlated with the top of the gastric folds. The GE junction was at 42 cm from the incisors. No acute erosive changes. No strictures. No mass lesions. No ulcerations. Slightly tortuous distal esophagus, but no mucosal pathology to account for the patient's presentation. ENDOSCOPIC DIAGNOSES: 1. Small 5 mm umbilicated gastric lesion-? pancreatic rest. 2. Mild gastropathy. 3. Otherwise visually unremarkable esophagogastroduodenoscopy. RECOMMENDATIONS: 1. Await PyloriTek. This should be available in the next 30-60 minutes. 2. Await histopathology. 3. Further workup as to the source for the patient's chest pain are clearly indicated. I will attempt to discuss with Dr. Terrazas. Perhaps a CT chest and/or then pursuit of gallbladder workup may be quite reasonable. 4. Regardless, I did not appreciate any contraindications to any specific cardiac therapy or intervention on today's examination.
--- NOTE | 2017-01-04 12:00 | NUR ---
CT scan Patient returned to room at 1055 from Endo, awake, a/o x4. Patient denies pain, nausea or sob. Patient remains npo and down to CT scan at noon.
--- NOTE | 2017-01-04 13:31 | DRSVH ---
PROCEDURE: CT ANG CHEST/ABD W/WO CONTRAST ([id number]) INDICATIONS: rule out dissection, extend to abdomen to eval GB TECHNIQUE: Precontrast 5 mm thick sections acquired from the lung apices to the iliac crests. After the adminis tration of intravenous contrast, 3 mm thick sections again acquired from the lung apices to the iliac crests. 3-dimensional maximum intensity projection (MIP) oblique sagittal and coronal reformats wer e then acquired, and/or 3-dimensional volume rendering reformats. For radiation dose reduction, the following was used: automated exposure control. COMPARISON: None. FINDINGS: Image quality: Good. AORTA: Thoracic and abdominal aorta show no evidence for dissection, aneurysm, thrombus or extravasat ion. Scattered atherosclerosis is present. There is good vascular contrast involving the renal arteries the celiac and SMA. There is also enhanc ement involving inferior mesenteric artery. CHEST: Lungs and pleura: No acute airspace opacities. No pleural effusions or pneumothorax. Central and p eripheral airways are patent and normal in caliber. Mediastinum: Heart size is normal. No pericardial effusion. No mediastinal or hilar adenopathy by size criteria. Central pulmonary arteries are normal in size. Esophagus is normal in caliber. No h iatal hernias. Bones and chest wall: No axillary adenopathy by size criteria. Thyroid gland is within normal limit s. No suspicious bony lesions. No vertebral body compression fractures. ABDOMEN: Vasculature: Celiac trunk and mesenteric arteries are patent. Renal arteries are also patent. Solid organs: Liver and spleen are normal in size. Gallbladder is within normal limits. Biliary sy stem is non dilated. Pancreas enhances normally. No adrenal nodules. Both kidneys are normal in si ze and enhancement, without hydronephrosis. Inferiorly and posteriorly is a 2 cm cyst in the right ki dney. At the lateral aspect of the mid to lower pole is an 8mm structure that is indeterminate. Relat ively high density without contrast and slightly higher that time average of kidney cortex with contr ast. Ultrasound to rule out solid lesion and one high density cysts as needed. Peritoneum and bowel: No free fluid or air. Bowel loops are normal in caliber and wall thickness. Nodes and vessels: No retroperitoneal or mesenteric adenopathy by size criteria. Inferior vena cava is normal in morphology. Bones: No suspicious bony lesions. No vertebral body compression fractures. Miscellaneous: No ventral hernias. IMPRESSION: 1. Cause of epigastric pain per patient resolved following heartburn medication is not identified. 2. No acute vascular abnormality is seen. 3. No abnormality is otherwise seen in the CT scan of the thorax and abdomen with contrast done for d issection protocol. Dictated by: Don Christensen M.D. on 01/04/2017 at 13:22 Approved by: Don Christensen M.D. on 01/04/2017 at 13:29
--- NOTE | 2017-01-04 15:17 | NUR ---
Social Work: Initial Assessment / Readiness for d/c Data: Pt is a 76 y/o male admitted for chest pain. Pt's PCP is not listed, pt's insurance is [facility] [place] Medicare. EMR reviewed. Readmit score is 0, low. Pt discussed in multidisciplinary rounds. MD states pt may possibly d/c today or tomorrow, RN states pt has been up and independent in the room. SEWER PIPE PRESS OPERATOR met with pt at bedside, role explained. Pt states that he lives in [place] with his in a single story home where he uses no DME. Pt drives, has no hx of HH or SNF, no LTC or VA benefits. No d/c planning needs identified at this time. SEWER PIPE PRESS OPERATOR will continue to follow if needs arise. Assessment: Pt who is independent at baseline, currently capable of self care. Plan: Pt will d/c home via POV with spouse when medically stable, possibly today. No d/c planning needs identified at this time. SEWER PIPE PRESS OPERATOR will continue to follow if needs arise. DAGO Cordova Addendum: 01/04/17 at 1519 by HOLLY CAMILO Amended: Links added.
--- NOTE | 2017-01-04 15:42 | PCM.DIMED ---
Alexandru Friedman DO 01/04/17 1542: Discharge Instructions Date of Service Jan 04, 2017 Dates of Hospitalization Jan 02, 2017 at 14:02 Discharge Diagnosis Discharge Diagnosis Pericarditis, present on admission, acute. Stable Hyperlipidemia, present on admission, chronic. stable Medication Instructions Additional med instructions We will send you out with a couple prescriptions: Colchicine 0.6 mg daily Ibuprofen 800 mg three times daily I have written for a 2 week prescription for a anti acid medication. If you continue to have problems with acid as an outpatient please discuss this with your primary care doctor for further management. Test Results Test Results CT ANG CHEST/ABD W/WO CONTRAST IMPRESSION: 1. Cause of epigastric pain per patient resolved following heartburn medication is not identified. 2. No acute vascular abnormality is seen. 3. No abnormality is otherwise seen in the CT scan of the thorax and abdomen with contrast done for dissection protocol. Diet Discharge Diet: Heart Healthy Activity Discharge Activity: No restrictions Call your provider Call your provider for: Fever or Chills, Shortness of breath, Bleeding, Chest pain, Vomitting, Excessive diarrhea, Weakness (unilateral), Other (Blood in stool or vomit, pain with eating) Patient Instructions Patient Instructions If you have pain with meals, blood tinged or black tarry stools, or blood in your vomit please stop taking the ibuprofen immediately and consult your primary care doctor. Follow-up plan Please follow up with the residency clinic in 1 week. Follow-up Provider: [facility] Residency Clinic Follow-up with PCP in: 1 week Pedro Saunders MD 01/04/17 1644: Discharge Instructions Attending's Statement The patient was seen and examined together with Dr. Friedman on 01/04/2017 and I agree with the history, exam and plan as outlined in the note above. . Alexandru Friedman DO Jan 04, 2017 15:42 Pedro Saunders MD Jan 04, 2017 16:44
[2017-01-04] MEDS ORDERED: COLC0.6C3 PO (15:43)
[2017-01-04] MEDS ORDERED: IBUP800T28 PO (15:43)
--- NOTE | 2017-01-04 15:55 | NUR ---
Social Work: Discharge Data: Pt is on day 2 of hospitalization. EMR reviewed. D/C orders are in. Pt's spouse here to drive him home. No d/c planning needs at this time. LINEN SUPERVISOR will continue to follow if needs arise. Assessment: Pt who is independent at baseline, currently capable of self care. Plan: Pt will d/c home via POV with spouse today. No d/c planning needs at this time. LINEN SUPERVISOR will continue to follow if needs arise. DAGO Cordova
[2017-01-04] MEDS ORDERED: PANT20T PO (15:59)
--- NOTE | 2017-01-04 16:43 | NUR ---
Discharge note Patient a/o x 4, denies chest pain, nausea or sob. Patient amb indep steady gait. VSS, tele SR 70's with short burst PSVT. Patient asymptomatic and MD notified. EKG done prior to discharge. IV SL x 2 and tele removed intact. Patient given discharge instructions, med rec, prescriptions and info on meds and diagnosis. All questions answered. Patient amb to the car with all belongings and discharged home with .
--- NOTE | 2017-01-04 17:55 | PCM.DC.MED ---
Discharge Summary Date of Service Jan 04, 2017 Dates of Hospitalization Date of Hospital Admission Jan 02, 2017 at 14:02 Date of Discharge: Jan 04, 2017 Providers: Admitting Physician: Pedro Saunders MD Primary Care Physician: Casimiro Attending Physician: Pedro Saunders MD Diagnosis at Time of Discharge Diagnosis at Time of Discharge Pericarditis, present on admission, acute. Stable Hyperlipidemia, present on admission, chronic. stable Consultations GI with Dr. Rousseau Cardiology with Dr. Terrazas Procedures XRay, CTs & MRIs X-RAY CHEST ONE VIEW, PORTABLE IMPRESSION: Normal. Source of pain is not seen. Dictated by: Tk Aguilera M.D. on 01/02/2017 at 13:06 Approved by: Tk Aguilera M.D. on 01/02/2017 at 13:06 ECG 12 Lead J point elevation, improved over hospital stay, borderline ST elevation in lateral leads. Cardiac Echo Impression Echocardiogram The left ventricle is normal in size. The ejection fraction is estimated to be 60-65%. The right ventricle is normal in size and function. There is mild to moderate mitral regurgitation. There is mild aortic regurgitation. The aortic root is mildly dilated. The ascending aorta is mild-moderately enlarged. Brief History Taken from History and Physical composed by Dr. Gilmore on 01/02/17 Mr. Abdi is a typically healthy 76 y/o male with a history of intermittent GERD , minimal dysphagia, borderline hyperlipidemia, and not on any medications who presented to the ED via EMS complaining of chest pain onset 1 hour prior to arrival. The pain is localized to the left center area of his chest and and he describes a sharp stabbing 9/10 pain which does not radiate. Pain is made better by deep breathing, and is not reproducible to palpation, and is not made worse with exertion. At the time of onset patient had recently finished loading his truck, and tying down the contents. He states he was laying down resting watching TV for a few minutes and as he stood up the pain in his chest began. He did not experience any nausea, vomiting, sweating. EMS was called, patient was given 2 SL Nitro, 2 MG morphine, and 324 mg of aspirin. Post therapy the patient reported 3/10 chest pain. He states that the nitroglycerin seemed to help his pain, however its effect seemed to be slow acting. Patient also reports that the last 2 weeks he has experienced episodes of shortness of breath and there frequency seems to be increasing. Typically the patient is very active. In the emergency department chest x-ray was negative for pathology. EKG showed Abnormal R-wave progression, early transition, and possible old inferior infarct. Serial troponins of this far been negative. Echo shows ejection fraction of 60-65% , mild to moderate mitral regurg, mild aortic regurg. All other parameters within normal limits. . Hospital Course Mr. Abdi is a typically healthy 76 y/o male with a history of intermittent GERD , minimal dysphagia, borderline hyperlipidemia, and not on any medications who presented to the ED via EMS complaining of chest pain onset 1 hour prior to arrival. This was found to be most likely due to pericarditis of uncertain etiology, this resolved well over the course of his hospital stay, and upon DC the patient was pain free and instructed to take Colchicine and Ibuprofen should his chest pain return. Possible pericarditis, POA, acute. Improved - EKG findings not suggestive of cardiomyopathy - Creatinine kinase, CK-MB, CK-MB percent negative - C-reactive protein, mildly elevated at 1.1 - Relatively normal findings on echo ejection fraction 60-65% see above - Stress test unremarkable - Elvated ESR indicating a pericarditis picture - 0.6 Colchicine PO and Ibuprofen 800 mg PO TID written should his pain return; if he takes these he should begin taking Protonix as written - Upper endoscopy not indicative of gastritis, esophagitis, or other etiology of patient symptoms, no ulcers or other contra-indications for NSAID therapy Hyperlipidemia - Per patient most recent lipid panel performed a number of years ago, he thinks that his numbers were borderline at this time. - Repeat lipid panel ordered, very mild elevation in LDL, consider statin as an outpatient . Exam Vital Signs (Last) Date Time Temp Pulse Resp B/P Pulse Ox O2 Delivery O2 Flow Rate FiO2 01/04/17 12:24 36.4 83 16 154/79 96 Room Air 01/03/17 07:26 6.00 Exam Gen: A/O x3 pleasant gangly elderly gentleman in NAD Neck: Supple, Full ROM, no lymphadenopathy HEENT: PERRL, EOMI, no scleral icterus CV: RRR, no murmurs rubs or gallops Resp: Lungs CTA BL, no wheezing rales or rhonchi Abd: soft, no rebound guarding masses or tenderness Extr: No clubbing cyanosis or edema Neuro: CN 2-12 grossly intact, no focal neurologic deficit Psych: Pleasant and appropriate mood and affect. Test 01/02/17 12:38 01/02/17 13:03 01/02/17 16:15 01/03/17 02:25 Prothrombin Time 10.7sec (8.1-12.5) Prothromb Time International Ratio 1.00ratio Magnesium Level 2.0mg/dL (1.6-2.6) Urine Color Straw (YELLOW) Urine Appearance Clear (CLEAR,HAZY) Urine pH 6.5 (5.0-8.0) Urine Specific [place] 1.005 (1.003-1.035) Urine Protein Negativemg/dL (NEG,TRACE) Urine Glucose (UA) Negativemg/dL (NEGATIVE) Urine Ketones Negativemg/dL (NEGATIVE) Urine Occult Blood Negative (NEGATIVE) Urine Nitrite Negative (NEGATIVE) Urine Bilirubin Negative (NEGATIVE) Urine Urobilinogen Normalmg/dL (NORMAL) Urine Leukocyte Esterase Negative (NEGATIVE) Urine RBC 0-2/hpf (0-2) Urine WBC 0-5/hpf (0-5) Urine Epithelial Cells Occasional/hpf (NONE-MOD) Urine Crystals None seen (NONE SEEN) Urine Bacteria None/hpf (NONE-FEW) Urine Hyaline Casts None/lpf (NONE) Urine Granular Casts None seen (NONE SEEN) Urine Waxy Casts None seen (NONE SEEN) Urine Red Blood Cell Casts None seen (NONE SEEN) Urine White Blood Cell Casts None seen (NONE SEEN) Urine Mucus None seen (None Seen) Urine Trichomonas None seen (NONE SEEN) Urine Yeast None (NONE SEEN) Urinalysis Comment None Urine Culture Reflexed Not indicated Hold Urine Received (Received) Creatine Kinase MB 6.3ng/mL (0.0-10.4) Creatine Kinase MB % 3.6% (0.0-5.0) Erythrocyte Sedimentation Rate 11mm/hr (0-30) Total Creatine Kinase 106U/L (21-232) Troponin T 0.010ug/L (0.0-0.011) C-Reactive Protein 4.0mg/dL (0.0-0.5) Triglycerides Level 62mg/dL (0-149) Cholesterol Level 184mg/dL (100-199) LDL Cholesterol, Calculated 118.600mg/dL (0-99) VLDL Cholesterol 12.400mg/dL HDL Cholesterol 53mg/dL (>39) Cholesterol/HDL Ratio 3.47 (0.0-4.4) Thyroid Stimulating Hormone (TSH) 1.320uIU/mL (0.450-4.500) Free Thyroxine 1.03ng/dL (0.82-1.77) Test 01/03/17 08:01 01/04/17 03:25 Activated Partial Thromboplast Time 52.0sec (22.8-33.0) White Blood Count 6.8th/mm3 (3.8-10.1) Red Blood Count 4.93mil/mm3 (4.40-5.80) Hemoglobin 15.1g/dL (13.8-17.2) Hematocrit 44.6% (41.0-50.0) Mean Corpuscular Volume 90.5fL (81-100) Mean Corpuscular Hemoglobin 30.6pg (27.0-35.0) Mean Corpuscular Hemoglobin Concent 33.9% (32.0-37.0) Red Cell Distribution Width 13.2% (12.3-15.4) Platelet Count 185bil/L (150-400) Neutrophils (%) (Auto) 67.8% (40-74) Lymphocytes (%) (Auto) 14.2% (14-46) Monocytes (%) (Auto) 15.5% (4-12) Eosinophils (%) (Auto) 1.8% (0-5) Basophils (%) (Auto) 0.4% (0-3) Sodium Level 138mEq/L (134-144) Potassium Level 4.3mEq/L (3.5-5.2) Chloride Level 102mEq/L (97-108) Carbon Dioxide Level 21mmol/L (18-29) Blood Urea Nitrogen 21mg/dL (8-27) Creatinine 0.87mg/dL (0.76-1.27) Estimat Glomerular Filtration Rate 90mL/min (>59) Glucose Level 103mg/dL (60-99) Calcium Level 8.5mg/dL (8.5-10.1) Total Bilirubin 1.6mg/dL (0.0-1.2) Aspartate Amino Transf (AST/SGOT) 18U/L (0-50) Alanine Aminotransferase (ALT/SGPT) 18U/L (0-44) Alkaline Phosphatase 77U/L (25-160) Total Protein 6.5g/dL (6.4-8.4) Albumin 3.4g/dL (3.4-5.0) Discharge Medications Discharge Medications Colchicine (Colchicine) 0.6 Mg Capsule 0.6 MG PO DAILY Prescribed by: KEYONNA FRIEDMAN DO Pantoprazole DR (Protonix) 20 Mg Tablet 20 MG PO BID Prescribed by: KEYONNA FRIEDMAN DO As needed Ibuprofen (Ibuprofen) 800 Mg Tablet 800 MG PO TID PRN PRN For Pain Prescribed by: KEYONNA FRIEDMAN DO Miscellaneous Medications ([tumeric]) Unknown Dose (Reported) ([vit E]) (Reported) ([vit D]) (Reported) Additional med instructions We will send you out with a couple prescriptions: Colchicine 0.6 mg daily Ibuprofen 800 mg three times daily I have written for a 2 week prescription for a anti acid medication. If you continue to have problems with acid as an outpatient please discuss this with your primary care doctor for further management. Followup Plan Disposition: home Follow-up plan Please follow up with the residency clinic in 1 week. Discharge Diet: Heart Healthy Discharge Activity: No restrictions Patient Instructions If you have pain with meals, blood tinged or black tarry stools, or blood in your vomit please stop taking the ibuprofen immediately and consult your primary care doctor. Follow-up Provider: [facility] Residency Clinic Follow-up with PCP in: 1 week Time spent Greater than 30 minutes was spent in preparation of discharge with greater than 50% of that time dedicated to patient counseling and coordination of care. . Attending Statement The patient was seen and examined together with Dr. Friedman on 01/04/2017 and I agree with the history, exam and plan as outlined in the note above. . copies to: [facility] Res[facility] Keyonna Friedman DO Jan 04, 2017 17:55 Pedro Saunders MD Jan 05, 2017 07:36
--- NOTE | 2017-01-07 15:50 | PATH ---
SURGICAL PATHOLOGY Attending Physician:Shoshana Dawson CASE STATUS: Signed Out PATIENT NAME: DEBBIE MCDANIEL PID: [id number] : 1940 DATE COLLECTED:01/04/2017 00:00 SPECIMEN: Gastric, Biopsy CLINICAL HISTORY: 1). GASTRIC BIOPSY FINAL DIAGNOSIS: 1.STOMACH, BIOPSY: CHRONIC ACTIVE HELICOBACTER GASTRITIS. HELICOBACTER ORGANISMS HIGHLIGHTED ON IMMUNOHISTOCHEMISTRY. Negative for intestinal metaplasia. Negative for dysplasia and malignancy. ICD10 B96.81 GROSS DESCRIPTION: The specimen is received in one formalin filled container labeled with the patient's name, sublabeled "gastric N. "and consists of a 0.2 x 0.2 x 0.2 CM portion of tissue which is entirely submitted in one cassette. 01/05/2017DC MICRO DESCRIPTION: An immunohistochemical stain was performed to evaluate for Helicobacter organisms and is positive. A control stain showed appropriate reactivity. This test was developed and its performance characteristics determined by [facility]. It has not been cleared or approved by the U. S. Food and Drug Administration. The FDA has determined that such clearance or approval is not necessary. This test is used for clinical purposes. It should not be regarded as investigational or for research. ICD-9 CODES: CPT CODES: 1: 70667, 02491 Electronically Signed Out Rayray Schofield MD, Ph.D. [facility] [address], [place] [address] Technical component performed at [facility], [facility] [address], [place], [address]
== END 2017-01-04 16:50 | disposition home or self-care (01) | DRG 316 ==
LOC: SED 12:18 → CCU 13:59 → UNDOADMOB 13:59 → OBSVTOIN 14:02 → PCC 14:02
PROVIDERS: ADMIT Internal Medicine; ATTEND Internal Medicine
PROC: 0DB68ZX Excision of Stomach, Via Natural or Artificial Opening Endoscopic, Diagnostic (ICD-10-PCS; principal; 2017-01-04 09:30)
DX: I30.9 Acute pericarditis, unspecified (principal); E78.5 Hyperlipidemia, unspecified; K31.9 Disease of stomach and duodenum, unspecified